=== PATIENT | male | born 1975 | race American Indian/Alaskan Native ===

== ENCOUNTER 2017-07-17 20:41 | Emergency (ER) | payer SELFPAY ==
[2017-07-17 20:49] VITALS: BP 109/62
[2017-07-17] MEDS ORDERED: TYLENOL ONE (23:32)
[2017-07-17] MEDS ORDERED: TYLENOL PO ONE (23:37)
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
== END 2017-07-18 01:50 | disposition home or self-care (01) ==
LOC: ED 20:41
DX: R51 Headache (principal); R42 Dizziness and giddiness; F17.200 Nicotine dependence, unspecified, uncomplicated
CPT/HCPCS: 70450; 99283